=== PATIENT | female | born 1960 | race African-American/Black ===

== ENCOUNTER 2016-10-21 14:28 | Emergency (ER) | payer SELFPAY ==
--- NOTE | 2016-10-21 14:50 | ED Physician Chart ---
Chief Complaint/HPI - Patient Information Date Seen:: 10/21/16 Time Seen:: 14:39 Chief Complaint:: bug bites History of Present Illness:: THIS IS A 55 YO OLD FEMALE WITH MULTIPLE BUG BITES ON THE RIGHT ARM AND LEFT NECK AREA OVER THE LAST 24 HRS. SHE IS NOW CONCERNED ABOUT THE SWELLING ITCHING ASSOCIATED WITH THE BITES. SHE DENIES HAVING BED BUGS IN HER HOUSE. SHE ALSO STATES THAT SHE HAS HAD RECENT UPPER RESPIRATORY INFECTION SYMPTOMS. SHE DENIES FEVER BUT ADMITS TO A COUGH. Allergies:: Allergies Allergy/AdvReac Type Severity Reaction Status Date / Time amoxicillin Allergy Verified 04/22/16 14:12 codeine Allergy Verified 04/22/16 14:14 erythromycin base Allergy Verified 04/22/16 14:37 Penicillins [PCN] Allergy Verified 04/22/16 14:14 Sulfa (Sulfonamide Allergy Verified 04/22/16 14:14 Antibiotics) Vitals:: Vital Signs - 8 hr 10/21/16 14:37 Temp 98.7 F HR 99 RR 16 BP 127/62 O2 Sat % 99 Historian:: Patient Review:: Nurse's Note Reviewed Review of Systems - Review of Systems General/Constitutional: No fever, No chills, No weight loss, No weakness, No diaphoresis, No edema, No loss of appetite Skin: Skin lesions, No rash, No bruising Head: No headache, No light-headedness Eyes: No loss of vision, No pain, No diplopia ENT: No earache, No nasal drainage, No sore throat, No tinnitus Neck: No neck pain, No swelling, No thyromegaly, No stiffness, No mass noted Cardio Vascular: No chest pain, No palpitations, No PND, No orthopnea, No edema Pulmonary: No SOB, No cough, No sputum, No wheezing GI: No nausea, No vomiting, No diarrhea, No pain, No melena, No hematochezia, No constipation, No hematemesis G/U: No dysuria, No frequency, No hematuria Musculoskeletal: No bone or joint pain, No back pain, No muscle pain Endocrine: No polyuria, No polydipsia Psychiatric: No prior psych history, No depression, No anxiety, No suicidal ideation Hematopoietic: No bruising, No lymphadenopathy Allergic/Immuno: No urticaria, No angioedema Neurological: No syncope, No focal symptoms, No weakness, No paresthesia, No headache, No seizure, No dizziness, No confusion, No vertigo Past Medical History - Past Medical History Obtainable: Yes Past Medical History: No significant medical hx Family History: Diabetes Melitus (father) Surgical History: Hysterectomy Psychiatricy History: None Medication: Reviewed Family Medical History - Family Member Father History Unknown: Yes Ethnicity: Non- Living Status: Still Living Hx Family Hypertension: Yes Hx Family Diabetes: Yes Physical Exam - Physical Examination General/Constitutional: Awake, Well-developed, well-nourished, Alert, No distress, GCS 15, Non-toxic appearing, Ambulatory Head: Atraumatic Eyes: Lids, conjuctiva normal, PERRL, EOMI Skin: No rash, No ecchymosis, Well hydrated, No lymphadenopathy Other Skin comments:: THERE ARE TWO RIGHT ARM INSECT LIKE BITES AND LEFT NECK BITE SITE. BOTH ARE SWOLLEN AND RED. ENMT: External ears, nose nl, Nasal exam nl, Lips, teeth, gums nl Neck: Nontender, Full ROM w/o pain, No JVD, No nuchal rigidity, No bruit, No mass, No stridor Respiratory: Nl effort/Exclusion, Clear to Auscultation, No Wheeze/Rhonchi/Rales Cardio Vascular: RRR, No murmur, gallop, rubs, NL S1 S2 GI: No tenderness/rebounding/guarding, No organomegaly, No hernia, Normal BS's, Nondistended, No mass/bruits, No McBurney tenderness : No CVA tenderness Extremities: No tenderness or effusion, Full ROM, normal strength in all extremities, No edema, Normal digits & nails Neuro/Psych: Alert/oriented, DTR's symmetric, Normal sensory exam, Normal motor strength, Judgement/insight normal, Mood normal, Normal gait, No focal deficits Misc: normal gait, Normal back, No paraspinal tenderness ED Septic Shock - . Is Septic Shock (SBP<90, OR Lactate>4 mmol\L) present?: No - <6hrs of presentation: Vital Signs: Vital Signs - 8 hr 10/21/16 14:37 Temp 98.7 F HR 99 RR 16 BP 127/62 O2 Sat % 99 Reassessment (Disposition) - Reassessment Reassessment Condition:: Improved - Diagnosis Diagnosis:: MULTIPLE INSECT BITE URI - Aftercare/Follow up Instructions Aftercare/Follow-Up Instructions:: Counseled pt regarding lab results/diagnosis & need follow up, Refer to Discharge Instructions, Counseled pt & family regarding lab results/diagnosis & need follow up - Patient Disposition Discharge/Transfer:: Home Condition at Disposition:: Unchanged ED Discharge Plan - Patient Disposition Admit/Discharge/Transfer: PT DISCHARGED HOME Condition at Disposition: Improved
== END 2016-10-21 15:32 | disposition home or self-care (01) ==
LOC: ER 14:28
DX: S40.861A Insect bite (nonvenomous) of right upper arm, initial encounter (principal); S10.96XA Insect bite of unspecified part of neck, initial encounter; J06.9 Acute upper respiratory infection, unspecified; Z88.1 Allergy status to other antibiotic agents; Z88.0 Allergy status to penicillin; Z88.6 Allergy status to analgesic agent; Z90.710 Acquired absence of both cervix and uterus; W57.XXXA Bitten or stung by nonvenomous insect and other nonvenomous arthropods, initial encounter; Y93.89 Activity, other specified; Y92.89 Other specified places as the place of occurrence of the external cause; Y99.8 Other external cause status
CPT/HCPCS: 99283; 96372; J0696; Z7502

== ENCOUNTER 2016-10-28 12:45 | Emergency (ER) | payer SELFPAY ==
--- NOTE | 2016-10-28 13:28 | ED Physician Chart ---
Chief Complaint/HPI - Patient Information Date Seen:: 10/28/16 Time Seen:: 13:02 Chief Complaint:: insect bites History of Present Illness:: THIS IS A 55 YO FEMALE WHO RETURNED TO THIS ER FOR A RE-EVALUATION OF SKIN LESIONS. SHE STATES THAT SHE HAS MORE AND DIFFERENT AREAS OF CONCERN ON HER LEFT FOOT AND HER RIGHT FOREARM. SHE STATES THAT SHE FEELS OK OTHERWISE. SHE DENIES FEVER, COUGH AND SORE THROAT. SHE DENIES ANY UNUSUAL CONTACTS WITH ANIMALS OR HOME AREAS. SHE DENIES BEING IN THE OUTDOORS WITH PLANT CONTACT. Allergies:: Allergies Allergy/AdvReac Type Severity Reaction Status Date / Time amoxicillin Allergy Verified 10/28/16 13:01 codeine Allergy Verified 10/28/16 13:01 erythromycin base Allergy Verified 10/28/16 13:01 Penicillins [PCN] Allergy Verified 10/28/16 13:01 Sulfa (Sulfonamide Allergy Verified 10/28/16 13:01 Antibiotics) Vitals:: Vital Signs - 8 hr 10/28/16 12:53 Temp 98.4 F HR 98 RR 17 BP 132/92 O2 Sat % 98 Historian:: Patient Review:: Nurse's Note Reviewed Review of Systems - Review of Systems General/Constitutional: No fever, No chills, No weight loss, No weakness, No diaphoresis, No edema, No loss of appetite Skin: Skin lesions, No rash, No bruising Head: No headache, No light-headedness Eyes: No loss of vision, No pain, No diplopia ENT: No earache, No nasal drainage, No sore throat, No tinnitus Neck: No neck pain, No swelling, No thyromegaly, No stiffness, No mass noted Cardio Vascular: No chest pain, No palpitations, No PND, No orthopnea, No edema Pulmonary: No SOB, No cough, No sputum, No wheezing GI: No nausea, No vomiting, No diarrhea, No pain, No melena, No hematochezia, No constipation, No hematemesis G/U: No dysuria, No frequency, No hematuria Musculoskeletal: No bone or joint pain, No back pain, No muscle pain Endocrine: No polyuria, No polydipsia Psychiatric: No prior psych history, No depression, No anxiety, No suicidal ideation Hematopoietic: No bruising, No lymphadenopathy Allergic/Immuno: No urticaria, No angioedema Neurological: No syncope, No focal symptoms, No weakness, No paresthesia, No headache, No seizure, No dizziness, No confusion, No vertigo Family Medical History - Family Member Father History Unknown: Yes Ethnicity: Non- Living Status: Still Living Hx Family Hypertension: Yes Hx Family Diabetes: Yes Physical Exam - Physical Examination General/Constitutional: Awake, Well-developed, well-nourished, Alert, No distress, GCS 15, Non-toxic appearing, Ambulatory Head: Atraumatic Eyes: Lids, conjuctiva normal, PERRL, EOMI Skin: Nl inspection, No rash, No ecchymosis, Well hydrated, No lymphadenopathy Other Skin comments:: THERE ARE TWO INSECT BITES NOTED ON THE RIGHT FOREARM AND THE LEFT FOOT. A BITE SITE IS NOTED ON EACH BITE WITH REDNESS AND SWELLING AROUND EACH BITE. ENMT: External ears, nose nl, Nasal exam nl, Lips, teeth, gums nl Neck: Nontender, Full ROM w/o pain, No JVD, No nuchal rigidity, No bruit, No mass, No stridor Respiratory: Nl effort/Exclusion, Clear to Auscultation, No Wheeze/Rhonchi/Rales Cardio Vascular: RRR, No murmur, gallop, rubs, NL S1 S2 GI: No tenderness/rebounding/guarding, No organomegaly, No hernia, Normal BS's, Nondistended, No mass/bruits, No McBurney tenderness : No CVA tenderness Extremities: No tenderness or effusion, Full ROM, normal strength in all extremities, No edema, Normal digits & nails Neuro/Psych: Alert/oriented, DTR's symmetric, Normal sensory exam, Normal motor strength, Judgement/insight normal, Mood normal, Normal gait, No focal deficits Misc: normal gait, Normal back, No paraspinal tenderness ED Septic Shock - . Is Septic Shock (SBP<90, OR Lactate>4 mmol\L) present?: No - <6hrs of presentation: Vital Signs: Vital Signs - 8 hr 10/28/16 12:53 Temp 98.4 F HR 98 RR 17 BP 132/92 O2 Sat % 98 Reassessment (Disposition) - Reassessment Reassessment Condition:: Unchanged - Diagnosis Diagnosis:: INSECT BITES - Aftercare/Follow up Instructions Aftercare/Follow-Up Instructions:: Counseled pt regarding lab results/diagnosis & need follow up, Refer to Discharge Instructions, Counseled pt & family regarding lab results/diagnosis & need follow up - Patient Disposition Discharge/Transfer:: Home Condition at Disposition:: Unchanged ED Discharge Plan - Patient Disposition Admit/Discharge/Transfer: PT DISCHARGED HOME Condition at Disposition: Unchanged Instructions: Rash Additional Instructions: REST , INCREASE FLUID INTAKE . CONTINUE WITH YOUR DOCTOR FOR FURTHER EVAL
== END 2016-10-28 14:39 | disposition home or self-care (01) ==
LOC: ER 12:45
DX: S90.862A Insect bite (nonvenomous), left foot, initial encounter (principal); S50.861A Insect bite (nonvenomous) of right forearm, initial encounter; Z88.1 Allergy status to other antibiotic agents; Z88.0 Allergy status to penicillin; Z88.6 Allergy status to analgesic agent; W57.XXXA Bitten or stung by nonvenomous insect and other nonvenomous arthropods, initial encounter; Y93.89 Activity, other specified; Y92.89 Other specified places as the place of occurrence of the external cause; Y99.8 Other external cause status
CPT/HCPCS: Z7502

== ENCOUNTER 2017-01-10 21:14 | Emergency (ER) | payer SELFPAY ==
--- NOTE | 2017-01-10 22:03 | ED Physician Chart ---
Chief Complaint/HPI - Patient Information Date Seen:: 01/10/17 Time Seen:: 21:58 Chief Complaint:: sinus [place] History of Present Illness:: pt here for 4 d hx of sinus drainage or offwhite mucous. has postnasal gtt and resultant mild st. no ear pain. no sob. no lung congestion. no def fever but pos chills/sweats. no rash. no CASH> no stiff neck. has tried flonase w some slt relief. no other reg medds. nonsmoker but son smokes around outside house. pt has hx of sinusitus and gerd(not worse lately) Allergies:: Allergies Allergy/AdvReac Type Severity Reaction Status Date / Time amoxicillin Allergy Verified 10/28/16 13:01 codeine Allergy Verified 10/28/16 13:01 erythromycin base Allergy Verified 10/28/16 13:01 Penicillins [PCN] Allergy Verified 10/28/16 13:01 Sulfa (Sulfonamide Allergy Verified 10/28/16 13:01 Antibiotics) Vitals:: Vital Signs - 8 hr 01/10/17 21:26 Temp 98.9 F HR 77 RR 18 BP 136/74 O2 Sat % 98 Historian:: Patient Review of Systems - Review of Systems General/Constitutional: No fever, Chills, No chills, No weight loss, No weakness , No diaphoresis, No edema, No loss of appetite Skin: No skin lesions, No rash, No bruising Head: No headache, No light-headedness Eyes: No loss of vision, No pain, No diplopia ENT: No earache, Nasal drainage, Sore throat, No tinnitus Neck: No neck pain, No swelling, No thyromegaly, No stiffness, No mass noted Cardio Vascular: No chest pain, No palpitations, No PND, No orthopnea, No edema Pulmonary: No SOB, No cough, No sputum, No wheezing GI: No nausea, No vomiting, No diarrhea, No pain, No melena, No hematochezia, No constipation, No hematemesis G/U: No dysuria, No frequency, No hematuria Musculoskeletal: No bone or joint pain, No back pain, No muscle pain Endocrine: No polyuria, No polydipsia Psychiatric: No prior psych history, No depression, No anxiety, No suicidal ideation Hematopoietic: No bruising, No lymphadenopathy Allergic/Immuno: No urticaria, No angioedema Neurological: No syncope, No focal symptoms, No weakness, No paresthesia, No headache, No seizure, No dizziness, No confusion, No vertigo Past Medical History - Past Medical History Past Medical History: PUD/GERD, Other (sinusitus) Social History: Non Smoker Medication: Reviewed Family Medical History - Family Member Father History Unknown: Yes Ethnicity: Non- Living Status: Still Living Hx Family Hypertension: Yes Hx Family Diabetes: Yes Physical Exam - Physical Examination General/Constitutional: Awake, Well-developed, well-nourished, Alert, No distress, GCS 15, Non-toxic appearing, Ambulatory Other Gen/Cons comments:: mod obese. nontoxic. alert. ambulatory wo trouble. no stridor. no sob. no cough heard during exam. Head: Atraumatic Eyes: Lids, conjuctiva normal, PERRL, EOMI Skin: Nl inspection, No rash, No skin lesions, No ecchymosis, Well hydrated, No lymphadenopathy ENMT: External ears, nose nl, TM canals nl, Nasal exam nl, Lips, teeth, gums nl , Oropharynx nl, Tonsils nl Other ENMT comments:: clear mucoid nasal dc. mild hyperemia of nasal tissue Neck: Nontender, Full ROM w/o pain, No JVD, No nuchal rigidity, No bruit, No mass, No stridor Respiratory: Nl effort/Exclusion, Clear to Auscultation, No Wheeze/Rhonchi/Rales Cardio Vascular: RRR, No murmur, gallop, rubs, NL S1 S2 GI: No tenderness/rebounding/guarding, No organomegaly, No hernia, Normal BS's, Nondistended, No mass/bruits, No McBurney tenderness : No CVA tenderness Extremities: No tenderness or effusion, Full ROM, normal strength in all extremities, No edema, Normal digits & nails Neuro/Psych: Alert/oriented, DTR's symmetric, Normal sensory exam, Normal motor strength, Judgement/insight normal, Mood normal, Normal gait, No focal deficits Misc: normal gait, Normal back, No paraspinal tenderness ED Septic Shock - . Is Septic Shock (SBP<90, OR Lactate>4 mmol\L) present?: No - <6hrs of presentation: Vital Signs: Vital Signs - 8 hr 01/10/17 21:26 Temp 98.9 F HR 77 RR 18 BP 136/74 O2 Sat % 98 Reassessment (Disposition) - Reassessment Reassessment Condition:: Improved - Diagnosis Diagnosis:: 1 sinusitus - Aftercare/Follow up Instructions Aftercare/Follow-Up Instructions:: Counseled pt regarding lab results/diagnosis & need follow up Medication Prescribed:: amox, claritin d 24hr see pmd in 1-2 d ret if worse. - Patient Disposition Discharge/Transfer:: Home Condition at Disposition:: Improved
--- NOTE | 2017-01-10 22:16 | General Progress Note ---
Subjective - Review of Systems Service Date: 01/10/17 Events since last encounter: abx rx changed to doxy due to allergy no change in dx/dispo/plan etc otw Objective - Physical Exam Vitals and I&O: Vital Signs Temp 98.9 F 01/10/17 21:26 Pulse 77 01/10/17 21:26 Resp 18 01/10/17 21:26 BP 136/74 01/10/17 21:26 Pulse Ox 98 01/10/17 21:26 Intake & Output 01/10/17 01/10/17 01/11/17 06:59 18:59 06:59 Weight (lbs) 89.811 kg Assessment/Plan - Problem List Patient Problems: All Active Problems RED AND SWOLLEN LESIONS NECK/ARMS (Acute) RED AND SWOLLE LESIONS (Acute) COUGH WITH FEVER AND BODY ACHES (Acute) Facial pain (Acute) Gas pain (Acute) R14.1 Insect bite of arm (Acute) S40.869A
== END 2017-01-10 22:10 | disposition home or self-care (01) ==
LOC: ER 21:14
DX: J32.9 Chronic sinusitis, unspecified (principal); K21.9 Gastro-esophageal reflux disease without esophagitis; Z88.1 Allergy status to other antibiotic agents; Z88.5 Allergy status to narcotic agent; Z88.0 Allergy status to penicillin
CPT/HCPCS: Z7502

== ENCOUNTER 2017-03-10 13:39 | Emergency (ER) | payer SELFPAY ==
--- NOTE | 2017-03-10 14:30 | ED Physician Chart ---
ED Chief Complaint/HPI - Patient Information Date Seen:: 03/10/17 Time Seen:: 13:55 Chief Complaint:: CHEST CONGESTION History of Present Illness:: THIS IS A 56 YO FEMALE WHO STATES THAT SHE SLEPT UNDER AN OPEN WINDOW AWAKING THE NEXT MORNING WITH A SORE THROAT, CHEST CONGESTIO AND SINUS CONGESTION. SHE HAS A LONG HISTORY OF ALLERGIES. SHE DENIES SPUTUM PRODUCTION. Allergies:: Allergies Allergy/AdvReac Type Severity Reaction Status Date / Time amoxicillin Allergy Verified 03/10/17 13:47 codeine Allergy Verified 03/10/17 13:47 erythromycin base Allergy Verified 03/10/17 13:47 Penicillins [PCN] Allergy Verified 03/10/17 13:47 Sulfa (Sulfonamide Allergy Verified 03/10/17 13:47 Antibiotics) Vitals:: Vital Signs - 8 hr 03/10/17 13:47 Temp 98.4 F HR 101 RR 17 BP 142/92 O2 Sat % 97 Historian:: Patient Review:: Nurse's Note Reviewed ED Review of Systems - Review of Systems General/Constitutional: No fever, No chills, No weight loss, No weakness, No diaphoresis, No edema, No loss of appetite Skin: No skin lesions, No rash, No bruising Head: No headache, No light-headedness Eyes: No loss of vision, No pain, No diplopia ENT: No earache, Nasal drainage, Sore throat, No tinnitus Neck: No neck pain, No swelling, No thyromegaly, No stiffness, No mass noted Cardio Vascular: No chest pain, No palpitations, No PND, No orthopnea, No edema Pulmonary: No SOB, Cough, No sputum, No wheezing GI: No nausea, No vomiting, No diarrhea, No pain, No melena, No hematochezia, No constipation, No hematemesis G/U: No dysuria, No frequency, No hematuria Musculoskeletal: No bone or joint pain, No back pain, No muscle pain Endocrine: No polyuria, No polydipsia Psychiatric: No prior psych history, No depression, No anxiety, No suicidal ideation Hematopoietic: No bruising, No lymphadenopathy Allergic/Immuno: No urticaria, No angioedema Neurological: No syncope, No focal symptoms, No weakness, No paresthesia, No headache, No seizure, No dizziness, No confusion, No vertigo ED Past Medical History - Past Medical History Obtainable: Yes Past Medical History: HTN, Arthritis Family History: None Social History: Non Smoker, No Alcohol, No Drug Use Surgical History: None Psychiatricy History: None Medication: Reviewed Family Medical History - Family Member Father History Unknown: Yes Ethnicity: Non- Living Status: Still Living Hx Family Hypertension: Yes Hx Family Diabetes: Yes ED Physical Exam - Physical Examination General/Constitutional: Awake, Well-developed, well-nourished, Alert, No distress, GCS 15, Non-toxic appearing, Ambulatory Head: Atraumatic Eyes: Lids, conjuctiva normal, PERRL, EOMI Skin: Nl inspection, No rash, No skin lesions, No ecchymosis, Well hydrated, No lymphadenopathy ENMT: External ears, nose nl, Lips, teeth, gums nl Other ENMT comments:: THE NOSE IS CONGESTIVE WITH DRAINING EXUDATE THE POSTERIOR PHARYNX IS RED AND SWOLLEN. Neck: Nontender, Full ROM w/o pain, No JVD, No nuchal rigidity, No bruit, No mass, No stridor Respiratory: Nl effort/Exclusion, Clear to Auscultation, No Wheeze/Rhonchi/Rales Cardio Vascular: RRR, No murmur, gallop, rubs, NL S1 S2 GI: No tenderness/rebounding/guarding, No organomegaly, No hernia, Normal BS's, Nondistended, No mass/bruits, No McBurney tenderness : No CVA tenderness Extremities: No tenderness or effusion, Full ROM, normal strength in all extremities, No edema, Normal digits & nails Neuro/Psych: Alert/oriented, DTR's symmetric, Normal sensory exam, Normal motor strength, Judgement/insight normal, Mood normal, Normal gait, No focal deficits Misc: normal gait, Normal back, No paraspinal tenderness ED Assessment - Assessment General Assessment: ACUTE PHARYNGITIS SINUSITIS ED Septic Shock - . Is Septic Shock (SBP<90, OR Lactate>4 mmol\L) present?: No - <6hrs of presentation: Vital Signs: Vital Signs - 8 hr 03/10/17 13:47 Temp 98.4 F HR 101 RR 17 BP 142/92 O2 Sat % 97 ED Reassessment (Disposition) - Reassessment Reassessment Condition:: Unchanged - Diagnosis Diagnosis:: ACUTE PHARYNGITIS ACUTE SINUSITIS - Aftercare/Follow up Instructions Aftercare/Follow-Up Instructions:: Counseled pt regarding lab results/diagnosis & need follow up, Refer to Discharge Instructions, Counseled pt & family regarding lab results/diagnosis & need follow up - Patient Disposition Discharge/Transfer:: Home Condition at Disposition:: Unchanged ED Discharge Plan - Patient Disposition Admit/Discharge/Transfer: PT DISCHARGED HOME Condition at Disposition: Unchanged
== END 2017-03-10 14:30 | disposition home or self-care (01) ==
LOC: ER 13:39
DX: J01.90 Acute sinusitis, unspecified (principal); J02.9 Acute pharyngitis, unspecified; I10 Essential (primary) hypertension
CPT/HCPCS: 99284; 96372 ×2; J0696; J2930; Z7502

== ENCOUNTER 2017-03-28 22:18 | Emergency (ER) | payer SELFPAY ==
--- NOTE | 2017-03-28 23:40 | ED Physician Chart ---
ED Chief Complaint/HPI - Patient Information Date Seen:: 03/28/17 Time Seen:: 23:35 Chief Complaint:: Right medial ankle bug bite 1 day ago History of Present Illness:: 56 yo female had a bug bite on the medial side of right ankle 1 day ago. The bite was initially itchy and gradually became burning with surrounding swelling and erythema. Allergies:: Allergies Allergy/AdvReac Type Severity Reaction Status Date / Time amoxicillin Allergy Verified 03/28/17 22:48 codeine Allergy Verified 03/28/17 22:48 erythromycin base Allergy Verified 03/28/17 22:48 Penicillins [PCN] Allergy Verified 03/28/17 22:48 Sulfa (Sulfonamide Allergy Verified 03/28/17 22:48 Antibiotics) Vitals:: Vital Signs - 8 hr 03/28/17 22:30 Temp 98.1 F HR 79 RR 18 BP 138/92 O2 Sat % 99 ED Review of Systems - Review of Systems General/Constitutional: No fever, No chills Skin: Skin lesions Head: Headache Eyes: No loss of vision ENT: No earache Neck: No neck pain Cardio Vascular: No chest pain Pulmonary: No SOB GI: No nausea, No vomiting G/U: No dysuria Musculoskeletal: No bone or joint pain Psychiatric: No depression Neurological: No focal symptoms ED Past Medical History - Past Medical History Obtainable: Yes Past Medical History: Other (Bronchitis, sinusitis) Social History: Non Smoker, No Alcohol, No Drug Use Surgical History: Hysterectomy Family Medical History - Family Member Father History Unknown: Yes Ethnicity: Non- Living Status: Still Living Hx Family Hypertension: Yes Hx Family Diabetes: Yes ED Physical Exam - Physical Examination General/Constitutional: Awake Head: Atraumatic Eyes: Lids, conjuctiva normal, PERRL, EOMI Other Skin comments:: Right medial ankle focal erythema with 3 small vesicles at the center. There is surrounding swelling and tenderness. ED Assessment - Assessment General Assessment: Keflex 500mg PO q6h x 5 days Topical triple antibiotics bid Follow up with PCP or return to ER if pain become worse ED Septic Shock - . Is Septic Shock (SBP<90, OR Lactate>4 mmol\L) present?: No - <6hrs of presentation: Vital Signs: Vital Signs - 8 hr 03/28/17 22:30 Temp 98.1 F HR 79 RR 18 BP 138/92 O2 Sat % 99 ED Discharge Plan - Patient Disposition Admit/Discharge/Transfer: PT DISCHARGED HOME Condition at Disposition: Improved Instructions: Cellulitis Additional Instructions: Follow up with primary care doctor. Return to ED if symptoms worsen. Return to work in 2 days. Forms: Work Release Form
[2017-03-28] MEDS ORDERED: Triple Antibiotic 0.94 gm Pkt TP STA (23:49)
[2017-03-28] MEDS ORDERED: Triple Antibiotic 0.94 gm Pkt TP ONE (23:50)
== END 2017-03-29 00:08 | disposition home or self-care (01) ==
LOC: ER 22:18
DX: S91.051A Open bite, right ankle, initial encounter (principal); W57.XXXA Bitten or stung by nonvenomous insect and other nonvenomous arthropods, initial encounter; Y93.89 Activity, other specified; Y92.89 Other specified places as the place of occurrence of the external cause; Y99.8 Other external cause status
CPT/HCPCS: Z7502

== ENCOUNTER 2017-07-26 13:02 | Emergency (ER) | payer SELFPAY ==
--- NOTE | 2017-07-26 20:20 | ED Physician Chart ---
ED Chief Complaint/HPI - Patient Information Date Seen:: 07/26/17 Time Seen:: 13:00 Chief Complaint:: Congestion History of Present Illness:: onset x 3 days of sinus H/As, congestion, fever, and cough; pt denies S/T, E/As , neck pain, C/P, SOB, Abd. 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; pt denies ; pt is post-menopausal x 8 years Allergies:: Allergies Allergy/AdvReac Type Severity Reaction Status Date / Time amoxicillin Allergy Verified 03/28/17 22:48 codeine Allergy Verified 03/28/17 22:48 erythromycin base Allergy Verified 03/28/17 22:48 Penicillins [PCN] Allergy Verified 03/28/17 22:48 Sulfa (Sulfonamide Allergy Verified 03/28/17 22:48 Antibiotics) Vitals:: Vital Signs - 8 hr 07/26/17 13:04 Temp 97.7 F HR 80 RR 16 BP 124/87 O2 Sat % 97 Historian:: Patient Review:: Nurse's Note Reviewed ED Review of Systems - Review of Systems General/Constitutional: Fever, No chills, No weight loss, No weakness, No diaphoresis, No edema, No loss of appetite Skin: No skin lesions, No rash, No bruising Head: No headache, No light-headedness Eyes: No loss of vision, No pain, No diplopia ENT: No earache, Nasal drainage, No sore throat, No tinnitus Neck: No neck pain, No swelling, No thyromegaly, No stiffness, No mass noted Cardio Vascular: No chest pain, No palpitations, No PND, No orthopnea, No edema Pulmonary: No SOB, Cough, No sputum, No wheezing GI: No nausea, No vomiting, No diarrhea, No pain, No melena, No hematochezia, No constipation, No hematemesis G/U: No dysuria, No frequency, No hematuria, No nacturia Skin Lap Bonder: No vaginal discharge, No abnormal vaginal bleed, No contraction Musculoskeletal: No bone or joint pain, No back pain, No muscle pain Endocrine: No polyuria, No polydipsia Psychiatric: No prior psych history, No depression, No anxiety, No suicidal ideation, No homicidal ideation, No auditory hallucination, No visual hallucination Hematopoietic: No bruising, No lymphadenopathy Allergic/Immuno: No urticaria, No angioedema Neurological: No syncope, No focal symptoms, No weakness, No paresthesia, No headache, No seizure, No dizziness, No confusion, No vertigo ED Past Medical History - Past Medical History Obtainable: Yes Past Medical History: No significant medical hx Family History: HTN Social History: Non Smoker, No Alcohol, No Drug Use, Surgical History: Hysterectomy Psychiatricy History: None Medication: Reviewed Family Medical History - Family Member Father History Unknown: Yes Ethnicity: Non- Living Status: Still Living Hx Family Cancer: No Hx Family Coronary Artery Disease: No Hx Family Congestive Heart Failure: No Hx Family Hypertension: No Hx Family Diabetes: No Hx Family Seizures: No Hx Family HIV: No Hx Family COPD: No Hx Family Tuberculosis: No ED Physical Exam - Physical Examination General/Constitutional: Awake, Well-developed, well-nourished, Alert, No distress, GCS 15, Non-toxic appearing, Ambulatory Head: Atraumatic Eyes: Lids, conjuctiva normal, PERRL, EOMI Skin: Nl inspection, No rash, No skin lesions, No ecchymosis, Well hydrated, No lymphadenopathy ENMT: External ears, nose nl, TM canals nl, Nasal exam nl, Lips, teeth, gums nl , Oropharynx nl, Tonsils nl Other ENMT comments:: + Maxillary Sinus Tenderness; + Nasal Congestion Neck: Nontender, Full ROM w/o pain, No JVD, No nuchal rigidity, No bruit, No mass, No stridor Other Neck comments:: supple; no meningeal signs; no cervical tenderness; no bruits Respiratory: Nl effort/Exclusion, Clear to Auscultation, No Wheeze/Rhonchi/Rales Cardio Vascular: RRR, No murmur, gallop, rubs, NL S1 S2, Carotid/Femoral/Distal pulses equal bilaterally GI: No tenderness/rebounding/guarding, No organomegaly, No hernia, Normal BS's, Nondistended, No mass/bruits, No McBurney tenderness Other GI comments:: no pulsatile masses : No CVA tenderness Extremities: No tenderness or effusion, Full ROM, normal strength in all extremities, No edema, Normal digits & nails Neuro/Psych: Alert/oriented, DTR's symmetric, Normal sensory exam, Normal motor strength, Judgement/insight normal, Mood normal, Normal gait, No focal deficits Misc: Normal back, No paraspinal tenderness ED Septic Shock - . Is Septic Shock (SBP<90, OR Lactate>4 mmol\L) present?: No - <6hrs of presentation: Vital Signs: Vital Signs - 8 hr 07/26/17 13:04 Temp 97.7 F HR 80 RR 16 BP 124/87 O2 Sat % 97 ED Reassessment (Disposition) - Reassessment Reassessment:: pt tolerated po fluids well in ER; pt is asymptomatic upon discharge Reassessment Condition:: Improved - Diagnosis Diagnosis:: Sinus Headaches; Congestion; Sinusitis; Cough; Bronchitis; Fever; URI - Aftercare/Follow up Instructions Aftercare/Follow-Up Instructions:: Counseled pt regarding lab results/diagnosis & need follow up, Refer to Discharge Instructions, Counseled pt & family regarding lab results/diagnosis & need follow up Medication Prescribed:: Levaquin 500mg po qd x 10 days; Tylenol/Cool Mist Vaporizer; take medications as prescribed; Fluids - Patient Disposition Discharge/Transfer:: Home Condition at Disposition:: Stable (RTER prn if existing s/s reoccur and/or get worse and/or any other new s/s occur; ACIs given for all above Dx; Refer to ENT Specialist/Neurologist/Behavioral Instructor CARYL; F/U with PMD in one day or prn; RTER prn if concerned), Improved ED Discharge Plan - Patient Disposition Prescriptions: Levofloxacin [Levaquin] 500 mg PO DAILY 10 Days #10 tab Forms: Work Release Form
== END 2017-07-26 14:00 | disposition home or self-care (01) ==
LOC: ER 13:02
DX: J32.9 Chronic sinusitis, unspecified (principal); J40 Bronchitis, not specified as acute or chronic; J06.9 Acute upper respiratory infection, unspecified; Z90.710 Acquired absence of both cervix and uterus; Z88.1 Allergy status to other antibiotic agents; Z88.0 Allergy status to penicillin; Z88.5 Allergy status to narcotic agent
CPT/HCPCS: Z7502